=== PATIENT | male | born 1965 | race Caucasian/White ===

== ENCOUNTER 2016-11-26 05:37 | Inpatient (IN) | payer OTHER ==
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
[2016-11-26] VITALS (15 sets, daily range): BP systolic 113–168; BP diastolic 7–95; PULSE 71–99; RESP 13–20; O2SAT 95–99
[~2016-11-26] VITALS: Ht 167.6 cm; Wt 72.3 kg
[2016-11-26] MEDS: Lactated Ringer's 1,000 ML IV SCH ×6 (05:00→22:49)
[~2016-11-26 05:37] MED LIST: ACET-171 PO; ACET1TAB12 PO; ALBU8.5H2 INHALATION; ATRINH INH; BACL10TA PO; BECL8.7A6 INHALATION; Bacitracin 50,000 unit Inj IRRIGATION ONE; CeFAZolin Inj 2 GM in IV Premix 1 EACH IV ONE; DULO20CA18 PO; DXPN25C PO; MELO-253 PO; METH5TAB3 PO; TAMS0.4C98 PO; TEST200V20 IM; Thrombin Powder 5,000 Unit TOPICAL ONE; ZLP10T PO
[2016-11-26] MEDS ORDERED: CeFAZolin Inj 2 gm / 50mL D5W IV ONE (05:38)
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
[2016-11-26] MEDS ORDERED: Thrombin Powder 5,000 Unit TOPICAL ONE ×2 (07:19→08:19)
[2016-11-26] MEDS ORDERED: Bacitracin 50,000 unit Inj ONE (07:20)
[2016-11-26] MEDS ORDERED: Lactated Ringer's 500 ML IV PRN (08:00)
[2016-11-26] MEDS ORDERED: Lactated Ringer's 1,000 ML IV SCH (08:00)
[2016-11-26] MEDS ORDERED: Ondansetron 2 mg/mL 2 mL Inj IVPUSH PRN ×2 (08:00→11:00)
[2016-11-26] MEDS ORDERED: HYDROmorphone 1 mg/mL Inj IVPUSH PRN ×2 (08:00→11:00)
[2016-11-26] MEDS ORDERED: Labetalol 5 mg/mL 4 mL Inj IV PRN (08:00)
[2016-11-26] MEDS ORDERED: Dexamethasone 4 mg/mL Inj IVPUSH PRN (08:00)
[2016-11-26] MEDS ORDERED: MetoCLOpramide 5 mg/mL 2 mL Inj IVPUSH PRN (08:00)
[2016-11-26] MEDS ORDERED: Phenylephrine 10,000 mCg/mL Inj IVPUSH PRN (08:00)
[2016-11-26] MEDS ORDERED: EPHEDrine Sulfate 50 mg/mL Inj IVPUSH PRN (08:00)
[2016-11-26] MEDS ORDERED: Bupivacaine-MPF 0.5% 30 mL Inj INFILTRATE ONE (08:18)
[2016-11-26] MEDS ORDERED: Bacitracin 50,000 unit Inj IRRIGATION ONE (08:19)
--- NOTE | 2016-11-26 08:51 | DRSVH ---
PROCEDURE: X-RAY CERVICAL SPINE, 1 VIEW INDICATIONS: C5-6 ACDF, INTRAOPERATIVE LOCALIZATION IMAGE TECHNIQUE: Single lateral view of the cervical spine acquired. COMPARISON: None. FINDINGS: Lateral view of the cervical spine demonstrates a surgical screw within the C5. Dictated by: Kayla Aj M.D. on 11/26/2016 at 8:47 Approved by: Kayla Aj M.D. on 11/26/2016 at 8:49
[2016-11-26] MEDS ORDERED: Albuterol HFA 60 Puff 8 Gm Inhaler INHALATION PRN (10:50)
[2016-11-26] MEDS ORDERED: Benzocaine (Hurricaine) 20% Unit-Dose Spray MUC_MEMBRM PRN (10:55)
[2016-11-26] MEDS ORDERED: Promethazine Inj 50 MG in 0.9% Sodium Chloride-Pha MIX 100 ML IV PRN (10:55)
[2016-11-26] MEDS ORDERED: Magnesium Hydroxide 10 mL Oral Concentration PO PRN (11:00)
[2016-11-26] MEDS ORDERED: Polyethylene Glycol (PEG) 17 Gm Powder PO PRN (11:00)
[2016-11-26] MEDS: fentaNYL-PF 50 mCg/mL 2 mL Inj IVPUSH PRN ×2 (11:00→11:20)
[2016-11-26] MEDS ORDERED: hydrOXYzine Pamoate 25 mg Capsule PO PRN (11:00)
[2016-11-26] MEDS ORDERED: Sodium Biphos-Phos 133 mL Enema RECTAL PRN (11:00)
[2016-11-26] MEDS ORDERED: Benzocaine-Menthol Lozenge 2/Pkg MT PRN (11:00)
[2016-11-26] MEDS ORDERED: Senna-Docusate 8.6-50 mg Tablet PO PRN (11:00)
--- NOTE | 2016-11-26 12:38 | NUR ---
Arrived on Unit Patient arrived on floor from PACU in stable condition. Patient ambulated to the BR. VSS. Soft collar in place, SARAH draining seroserous. Patient reported nausea. 8 mg of ondansetron. Patient reported 9/10 neck pain and spasms. 10 mg of Oxycodone and 10 mg of Valium given. Tele SR 84. Suction set up for mucus, per patient request. Patient orientated to call light, bed, and phone. Call light and tray table within reach. Will continue to monitor patient hourly.
[2016-11-26] MEDS ORDERED: Albuterol 2.5 mg/3 mL Inhalation Solution NEB PRN (13:15)
[2016-11-26] MEDS: Ipratropium HFA 200 Puff 12.9 Gm Inhaler INHALATION SCH ×3 (13:31→20:45)
--- NOTE | 2016-11-26 13:33 | PCM.ANEP1 ---
Post Anesthesia PACU Phase 1 Assessment Vital Signs Vital Signs Date Time Temp Pulse Resp B/P Pulse Ox O2 Delivery O2 Flow Rate FiO2 11/26/16 13:14 77 11/26/16 13:07 37.0 99 17 168/95 99 Room Air 11/26/16 12:10 85 14 140/71 96 Nasal Cannula 3 11/26/16 11:55 88 13 133/74 95 Nasal Cannula 3 11/26/16 11:40 84 17 115/86 96 Nasal Cannula 3 11/26/16 11:25 86 15 113/7 95 Nasal Cannula 3 11/26/16 11:10 88 17 146/81 95 Nasal Cannula 3 11/26/16 10:55 98 18 144/77 95 Nasal Cannula 3 11/26/16 10:50 97 13 147/84 98 Simple Mask 10 11/26/16 10:45 88 15 143/79 96 Simple Mask 10 11/26/16 10:40 36.5 99 17 145/76 96 Simple Mask 10 11/26/16 06:08 36.7 71 18 121/78 96 Room Air Anesthetic Administered: GA Level of Alertness: Awake, talking Pain: Yes (pt reporting pain in back, neck and chest) Nausea or Vomiting: No CV Function and Hydration: Yes Airway Device: Lungs: Normal Air Movement PACU Phase 2 Assessment Patient Instructions Provided: N/A Cosme Dye MD November 26, 2016 13:33
--- NOTE | 2016-11-26 13:36 | OP ---
[address] [address] OPERATIVE REPORT PATIENT: LISANDRO RAGLAND : 1965 MR#: [id number] ADMIT: 11/26/2016 JOB ID: [id number] DATE OF SURGERY: 11/26/2016 PREOPERATIVE DIAGNOSIS(ES): Cervical spondylosis with myelopathy, radiculopathy. POSTOPERATIVE DIAGNOSIS(ES): Cervical spondylosis with myelopathy, radiculopathy. SURGEON: First preservative filler machine operator, Som Camacho MD. CARD CLOTHIER: Herber Torres PA-C. ANESTHESIA: General with Dr. Cosme Dye. ESTIMATED BLOOD LOSS: 50 cc. DRAINS: One SARAH. COMPLICATIONS: None. INDICATIONS: This patient had severe spondylosis with cord compression at C5-6, and right C5-6 neural foraminal narrowing. He presented with symptoms of cervical myelopathy and radiculopathy. DESCRIPTION OF PROCEDURE: This patient was taken to the operating room on November 26, 2016, placed under general anesthesia. He was placed supine with his head supported on a donut. He was prepped and draped sterile. The right side of the neck was infiltrated with 0.5% plain Marcaine. An incision was made transversely on the right side of the neck extending from the midline to the sternocleidomastoid. The incision was carried down sharply through the skin and subcutaneous tissues. Hemostasis was achieved with the bipolar electrocautery. The platysma was incised, and blunt dissection was used to create a plane just medial to the sternocleidomastoid. The carotid was palpated and mobilized laterally. The esophagus and trachea were mobilized medially with an appendectomy retractor. The blunt dissection was carried into the prevertebral space. A 12-mm Stafford pin was placed into the vertebral body of C5 and used as a marker. It was noted that the patient had a vertebral body that would easily accept a 14-mm screw to hold the plate. This could be determined by judging the depth of the 12-mm screw into the vertebral body of C5. This confirmed measurements that were obtained on the MRI scan prior to surgery. It should be noted that deep retractors were placed with the blades beneath the longus colli musculature and distracted open. A 12-mm Stafford pin was placed in the vertebral body of C5, and a 14-mm Stafford pin was placed in C6 and distracted open. The microscope was then brought into place sighting down the C5-6 disk space. The annulus was incised, and the disk material was removed piecemeal with curette and pituitary rongeur. A high-speed bur was used to remove the anterior and posterior osteophytes and widen the disk space. The posterior longitudinal ligament was completely resected and the ligament was undermined to decompress the central canal. The patient had bilateral foraminotomies that were much more aggressive on the right side. The foramen was opened with a high-speed bur, curette and Kerrison punch to decompress the C6 nerve roots bilaterally. The wound was then irrigated with antibiotic solution and the rasp was then used to prepare for the fusion, rasping to 8 mm. The rasp had a taper from 8 mm to 6 mm. Following the use of the rasp, the disk space was again irrigated with the antibiotic solution. Hemostasis was achieved with the use of Gelfoam soaked in thrombin. The Gelfoam was subsequently removed. Allograft bone was selected to fit the disk space at C5-6. Graft donor bone measuring 8 mm and tapering to 6 mm was placed at C5-6 and countersunk below the cortical level. The bone graft was held firmly in position. A plate was then selected to span the C5-6 level. The Ramon plate, a dynamic titanium plate manufactured by [employer] measuring 16 mm, was secured to the vertebral bodies of C5 and C6 with the 14-mm self-drilling bone screws. These are fixed angle screws. The screws were all locked into position, and the spacer was removed from the dynamic Ramon plate. The wound was then irrigated with antibiotic solution, and hemostasis was achieved with the bipolar electrocautery. A SARAH drain was placed at the base of the wound, brought out through a separate stab wound and hooked up to bulb suction. The platysma was approximated with interrupted sutures of 0 Vicryl. The skin was closed with 4-0 Vicryl using a subcuticular stitch. Steri-Strips were applied to the skin, which was dressed with Telfa, gauze and tape, and the patient was placed in a soft cervical collar.
[2016-11-26] MEDS ORDERED: 0.9% Sodium Chloride 100 ML ONE (14:15)
--- NOTE | 2016-11-26 14:16 | NUR ---
Evaluation completed. Please go to "Notes" then click on "Assessments and Notes" (bottom left corner of screen). Then select appropriate discipline tab on top of screen.
[2016-11-26] MEDS: Acetaminophen IV 1,000 MG in IV Premix 1 EACH IV SCH ×3 (14:46→23:00)
[2016-11-26] MEDS: CeFAZolin Inj 2 GM in IV Premix 1 EACH IV SCH (16:49)
[2016-11-26] MEDS: Senna-Docusate 8.6-50 mg Tablet PO SCH (20:44)
[2016-11-26] MEDS: Fluticasone 100 mCg Inhaler INHALATION SCH (20:45)
[2016-11-27 00:18] VITALS: BP 114/68; PULSE 87; RESP 18; O2SAT 94
[2016-11-27] MEDS: CeFAZolin Inj 2 GM in IV Premix 1 EACH IV SCH (00:36)
[2016-11-27] MEDS: Acetaminophen IV 1,000 MG in IV Premix 1 EACH IV SCH ×2 (04:40→11:00)
--- NOTE | 2016-11-27 04:50 | NUR ---
Pain/Neuro Pt reports pain 9/10 with spasms. PRN pain meds being given apporx q4hr per Pt requests. Vistaril given with 0 effects for spasms. 10mg valium given with + response for spasms. Pt rec'd 15mg oxy PRN x 2 doses which has brought pain to a 7/10 and Pt was able to sleep. Pt has chronic pain and rarely is less that 7/10. Neuro checks every 4hrs- intact, +CMS all extremities. Pt up to BR and gait is steady. Awakes easily and is A/O x4. Care continues
[2016-11-27 04:56] VITALS: BP 153/94; PULSE 80; RESP 20; O2SAT 97
[2016-11-27] MEDS: Ipratropium HFA 200 Puff 12.9 Gm Inhaler INHALATION SCH ×2 (08:25→12:00)
[2016-11-27] MEDS: Senna-Docusate 8.6-50 mg Tablet PO SCH (08:28)
[2016-11-27] MEDS: Fluticasone 100 mCg Inhaler INHALATION SCH (08:30)
[2016-11-27] MEDS ORDERED: DULoxetine 20 mg DR Capsule PO SCH (08:30)
--- NOTE | 2016-11-27 08:52 | PCM.DISURG ---
Surgical Discharge Instruction Date of Service November 27, 2016 Dates of Hospitalization Date of Hospital Admission November 26, 2016 at 12:51 Providers Admitting Physician: Som Camacoh MD Primary Care Physician: Nopcp Attending Physician: Som Camacho MD Discharge Diagnosis Discharge Diagnosis Status post C5-6 anterior cervical discectomy and fusion, with allograft bone, & anterior cervical plating from C5-6 Post Operative diagnosis Status post C5-6 anterior cervical discectomy and fusion, with allograft bone, & anterior cervical plating from C5-6 Additional Instructions Discharge Instructions Anterior Cervical Discectomy and Fusion What is my recovery like? The hospital stay is usually overnight. After the surgery, you might have a sore throat. This is very common due to the retraction (moving) of the esophagus and trachea. The sore throat usually resolves in 1-2 weeks. Drinking lots of fluids will help improve the symptoms. The cervical collar should be worn at night and for comfort only during the day. On your postoperative follow- up appointments, your Doctor will perform X-rays to see how well everything is healing. What are my restrictions? You should not lift anything heavier than five pounds. Avoid excessive movements of your neck until instructed specifically by your Doctor. Can I Shower? You may shower when you go home. You must remove the outside dressing on the 7th day after surgery, or change dressing as needed if soiled or saturated ( replacing new sterile gauze & water proof dressing) otherwise leave alone. The small pieces of tape (steri-strips) directly on top of the incision may get wet. The steri-strips will fall off on their own. Can I drive? No, you should not drive until specifically given permission from your Doctor in a follow up appointment. Most Patient's can drive in 2-3 weeks if they are not taking narcotic pain medications or muscle relaxers. You may ride in a car, but should avoid trips longer than two hours in duration. When can I return work / sports? Your Doctor will discuss your return to work with you on your first postoperative follow-up appointment. Most patients may return to work within 2 weeks for sedentary jobs. More physically demanding jobs may require 3-6 months of healing before such work can be considered. When should I call the doctor? You should call your Doctor or go to the Emergency Department if you develop chest pain, shortness of breath, oversedation, a temperature greater than 101.5 F, severe uncontrolled pain or weakness, loss of bowel or bladder function, choking, swelling, lots or drainage, pus discharge or constipation. Instructions Regarding Comfort & Pain Medication Use: During the recovery period , even with the use of pain medication, you may experience pain at the site of surgery. You may also have the same type of pain you had before surgery. Please use your pain scale as a guide for taking your pain medication. When your pain is greater than 4 out of 10, or when your pain reaches your personal tolerable level of pain, take your pain medication as prescribed. Use your pain medication on an 'as needed' basis. This means if your pain level is within your tolerable level of pain you DO NOT need to take the medication. As you get better, you will notice you can increase the time interval between doses and decrease the number of tablets you are taking, gradually taking less and less pain medication. Taking pain medication when it is not necessary (for example when your pain is tolerable or acceptable) can result in dangerous side effects and over- sedation. Signs and symptoms of over-sedation include: drowsiness, excessive sleeping, slow or difficult breathing, slurred speech, impaired thinking, confusion, impaired motor coordination. If you have any of these symptoms stop taking the medication and immediately contact your doctor. IF SYMPTOMS ARE LIFE THREATENING CALL 911. To decrease pain and swelling, frequently apply an ice pack for 20 min intervals with at least one hour off. When to take Acetaminophen for pain? If you don't have liver problems, allergies and/or Tylenol is not in your current pain medication. Take Extra Strength Tylenol 500mg 2 tabs by mouth every 6 hours as needed for pain. DO NOT EXCEED 8 TABS PER DAY. Additional Instructions As previously agreed upon please follow up with your Primary Care Provider for management of your postoperative pain & spasm. Follow Up Plan Follow Up Plan 1. Follow-up with physician team assistant in outpatient neurosurgical clinic in 1 week for wound check. 2. Follow-up with Primary Care Provider as scheduled or needed for management of postoperative pain & spasm. Follow-up Provider (F9): Herber Torres PA-C Additional Information Attending Statement All documentation reviewed & orders authorized by Dr. Som Camacho M.D. Herber Torres PA-C November 27, 2016 08:52
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
--- NOTE | 2016-11-27 09:08 | NUR ---
Social Work- Screening/Discharge Data: EMR reviewed. Pt is on day 1 of hospitalization. Pt to discharge today. Pt's insurance is [facility]. Pt has no PCP at this time. Pt's NOK is Lisandra Yi, SO, . SW met with pt at bedside regarding discharge plan, SW role explained. Pt resides in [place] where he is independent at baseline. Pt has no DPOA, paperwork provided. Pt has no discharge planning needs at this time. Pt to discharge home with SO to transport via POV. Assessment: Pt who is independent at baseline. Plan: Pt to discharge home with SO to transport via POV. No discharge needs identified. DEON Steen
[2016-11-27 09:57] VITALS: BP 148/87; PULSE 92; RESP 20; O2SAT 95
--- NOTE | 2016-11-27 10:49 | DRSVH ---
PROCEDURE: X-RAY CERVICAL SPINE, 1 VIEW INDICATIONS: C5-6 ACDF TECHNIQUE: Single lateral view of the cervical spine acquired. COMPARISON: [facility], CR, XR CERVICAL SPINE 1VW, 11/26/2016, 8:22. FINDINGS: Bones: Recent ACDF at the C5-C6 level with hardware and bone graft in expected position. Mild multil evel disc degeneration redemonstrated. Soft tissues: No prevertebral soft tissue swelling. IMPRESSION: Recent ACDF C5-C6. Dictated by: Mega Pierre RRA Interpreted: Alethea Powers MD on 11/27/2016 at 10:48 Transcribed by: PAO on 11/27/2016 at 10:48 Approved by: Alethea Powers MD, PhD on 11/27/2016 at 11:43
[2016-11-27 10:54] VITALS: PULSE 84
[2016-11-27] MEDS: Lactated Ringer's 1,000 ML IV SCH (11:56)
[2016-11-27 13:24] VITALS: BP 156/89; PULSE 97; RESP 18; O2SAT 95
--- NOTE | 2016-11-27 15:10 | NUR ---
Discharge Pt DC'ing home via private vehicle with family. Pain has not gotten below a 7/10 which is his baseline pain. Medicated with 10mg Lisa and 10mg Valium prior to dc'ing and reported some improvement in pain and spasm. Dressings changed per orders and SARAH drain removed. No prescriptions given as pain management will be handled by his PCP and he has medications at home. VSS. Low grade fever noted while pt was up walking around and pt fully dressed with sweatshirt on, rechecked later and he had no fever. Herber Torres notified of DC.
== END 2016-11-27 15:10 | disposition home or self-care (01) | DRG 473 ==
LOC: SAS 05:37 → MERGE 07:15 → OSC 12:51
PROVIDERS: ADMIT Neurological Surgery; ATTEND Neurological Surgery
PROC: 0RG20A0 Fusion of 2 or more Cervical Vertebral Joints with Interbody Fusion Device, Anterior Approach, Anterior Column, Open Approach (ICD-10-PCS; 2016-11-26)
PROC: 0RT30ZZ Resection of Cervical Vertebral Disc, Open Approach (ICD-10-PCS; principal; 2016-11-26 07:30)
DX: M47.12 Other spondylosis with myelopathy, cervical region (principal); J44.9 Chronic obstructive pulmonary disease, unspecified; Z79.891 Long term (current) use of opiate analgesic; Z79.51 Long term (current) use of inhaled steroids